=== PATIENT | female | born 2000 | race Caucasian/White ===

== ENCOUNTER 2019-08-02 19:28 | Emergency (ER) | payer OTHER ==
[2019-08-02 19:47] VITALS: BP 140/100
[2019-08-02] MEDS ORDERED: Cephalexin CAP* 500 MG PO ONE (20:03)
[2019-08-02] MEDS ORDERED: predniSONE TAB* 20 MG PO ONE (20:03)
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
== END 2019-08-02 20:13 | disposition home or self-care (01) ==
LOC: UCEAST 19:28
DX: L25.9 Unspecified contact dermatitis, unspecified cause (principal); L03.818 Cellulitis of other sites
CPT/HCPCS: 99212; A9270-GY; G0463; J7512